=== PATIENT | female | born 1985 | race Caucasian/White ===

== ENCOUNTER → 2018-09-14 13:36 | Outpatient (CLI) | payer MEDICARE, MEDICAID, SELFPAY ==
--- NOTE | 2018-09-14 | DI.MRI.S_ITS ---
PROCEDURE: MR HIP RT WO CON INDICATIONS: RIGHT HIP PAIN, LYTIC BONE LESIONS OF RIGHT FEMUR TECHNIQUE: Noncontrast coronal T1 spin echo and STIR through the bony pelvis. Coronal and axial T2 fast spin echo with fat saturation, sagittal T1 spin echo, and oblique axial T2 fast spin echo with fat saturation through the hip. (Please note that the patient declined IV contrast.) COMPARISON: [facility], MR, LOW.EXTREM NO JOINT WO CONTRAS, 09/16/2017, 13:09. [facility], MD, BONE SCAN WHOLE BODY, 10/22/2017, 13:54. [facility], MR, MR FEMUR RT WO CON, 09/14/2018, 14:22. [facility], MR, LOW.EXTR.NO JOINT WWO CONTRAST, 02/02/2018, 12:20. [facility], MR, MR PELVIS W&WO CON, 02/10/2017, 11:46. FINDINGS: Image quality: Diagnostic. However, please note that the patient declined intravenous contrast. Bones and joints: No acute fracture or dislocation is identified involving the osseous structures of the right hip or included bony pelvis. No evidence of avascular necrosis involving the proximal femur is evident. There continues to be marrow edema identified involving the proximal femoral shaft, which is less pronounced on the current study, compared to the previous exam. There appear to be postoperative changes involving the proximal femoral shaft. Please see the dictated report of the MRI of the femur from 09/14/18 for more details. Mild to moderate degenerative changes of the right hip are identified. Left angle of the proximal right femur appears to be within normal limits at less than 55?. No significant right hip effusion is identified. No suspicious osseous lesions are evident involving the remainder of the imaged osseous structures of the pelvis. There severe degenerative changes of the bilateral sacroiliac joints with possible osseous erosions and reactive marrow edema (left greater than right). There are mild to moderate degenerative changes of the lower lumbar spine and left hip. There is a focal area of low signal intensity identified involving the superior aspect of the acetabulum/left anterior iliac bone (image 19, series 3), which has been present on previous examinations and probably represents a bone island. Labrum: The right acetabular labrum is not well evaluated without intra-articular contrast. Mild heterogeneity along the superior labrum is present. No detached labral fragments are appreciated. No large para labral cysts are identified. Tendons and ligaments: The distal right gluteus medius and gluteus minimus tendons appear to be intact. The distal iliopsoas tendon also appears to be intact. The proximal hamstrings tendons are intact. The ligamentum teres appears intact where visualized. Soft tissues: Visualized muscles demonstrate normal bulk and internal signal. Quadratus femoris muscle demonstrates no internal edema to suggest ischiofemoral impingement. The proximal sciatic neurovascular bundle appears normal adjacent to the hamstring tendons. No free pelvic fluid. Bladder wall thickness is normal. Genitourinary structures and bowel loops appear normal where visualized. IMPRESSION: 1. Mild to moderate degenerative changes of the right hip without an acute fracture. 2. 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 A superimposed stress fracture is difficult to exclude. CT of the pelvis may be helpful for better characterization, if indicated. 2. No new bone lesions are evident. Dictated by: eJrmain Vickers M.D. on 09/14/2018 at 16:18 Approved by: Jermain Vickers M.D. on 09/14/2018 at 16:26
--- NOTE | 2018-09-14 | DI.MRI.S_ITS ---
PROCEDURE: MR FEMUR RT WO CON INDICATIONS: RIGHT HIP PAIN, LYTIC BONE LESIONS OF RIGHT FEMUR TECHNIQUE: Noncontrast coronal and sagittal T1 spin echo and STIR; axial T1 spin echo and T2 fast spin echo with fat saturation through the right thigh. Please note that the patient declined intravenous contrast. COMPARISON: [facility], MR, LOW.EXTR.NO JOINT WWO CONTRAST, 02/02/2018, 12:20. [facility], CR, XR FEMUR 2+ VIEWS RIGHT, 11/14/2017, 16:49. [facility], [place], BONE SCAN WHOLE BODY, 10/22/2017, 13:54. [facility], , LOW.EXTREM NO JOINT WO CONTRAS, 09/16/2017, 13:09. [facility], , MR PELVIS W&WO CON, 02/10/2017, 11:46. FINDINGS: Image quality: Diagnostic. However, the patient did declined intravenous contrast. Bones: There appear to have been interval postoperative changes involving the proximal shaft of the right femur. Residual marrow edema is identified at the operative site, which extends from the subtrochanteric region to the mid shaft of the femur. The degree of marrow edema is significantly less pronounced. There continues to be cortical thickening and heterogeneity along the anterior aspect of the proximal femoral shaft at this location no subperiosteal fluid collections are identified. However, there is mild edema identified within the underlying vastus intermedius muscle. The degree of marrow edema and adjacent soft tissue edema is less prominent on the current study compared to the previous exam. An additional separate focus of increased signal intensity on fluid sensitive sequences and intermediate signal on the T1 images is identified along the anterior margin of the distal femur at the level of the knee, which is unchanged in size and appearance since the previous examination without surrounding edema within the adjacent marrow. This structure is well circumscribed and appears to demonstrate chemical shift artifact on the T1 images, most suggestive of an enchondroma. Soft tissues: Postoperative changes within the soft tissues of the vein proximal-lateral aspect of the thigh are identified with areas of susceptibility artifact at the area of abnormal signal involving the proximal femoral shaft. There is mild residual soft tissue edema involving the vastus intermedius muscle at the site of the cortical thickening, which is significantly less pronounced on this examination, compared to the prior study. No significant muscle atrophy is identified. The remainder of the soft tissues of the thigh are within normal limits. There are no loculated fluid collections or soft tissue masses. IMPRESSION: 1. Interval postoperative changes of the proximal right femoral shaft with interval decrease in degree of marrow edema and heterogeneity, suggestive of healing. Differential diagnostic considerations would include healing stress fracture, resolving infection, or postoperative sequelae related to tumor resection/treatment. Clinical correlation with operative findings and pathological findings are recommended. The need for follow up imaging may be determined on clinical grounds. 2. Mild vastus intermedius muscle edema at the operative site is significantly less pronounced on the current study, compared to the previous exam. 3. 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 No new bone lesions. Dictated by: Jermain Vickers M.D. on 09/14/2018 at 16:27 Approved by: Jermain Vickers M.D. on 09/14/2018 at 16:38
== END ==
PROVIDERS: PCP Family Medicine; Visit Provider Family Medicine
DX: M25.551 Pain in right hip (principal); M89.9 Disorder of bone, unspecified; M16.11 Unilateral primary osteoarthritis, right hip; M47.818 Spondylosis without myelopathy or radiculopathy, sacral and sacrococcygeal region
CPT/HCPCS: 73718; 73721

== ENCOUNTER → 2019-10-27 18:54 | Outpatient (CLI) | payer MEDICARE, OTHER, MEDICAID, SELFPAY | PROVIDERS: PCP Family Medicine; Visit Provider Physician Assistant | DX: N30.01 Acute cystitis with hematuria (principal) | CPT/HCPCS: 87077; 87086; 87186 ==

== ENCOUNTER → 2019-12-10 13:57 | Outpatient (CLI) | payer MEDICARE, MEDICAID, SELFPAY ==
--- NOTE | 2019-12-10 | DI.MRI.S_ITS ---
PROCEDURE: MR KNEE RT WO CON INDICATIONS: PAIN IN RIGHT KNEE TECHNIQUE: Noncontrast sagittal PD fast spin echo and T2 fast spin echo with fat saturation, sagittal 3-D FLASH with fat saturation; coronal T1 spin echo and PD fast spin echo with fat saturation, and axial PD fast spin echo with fat saturation through the knee. COMPARISON: [facility], MR, KNEE WITHOUT CONTRAST, 09/16/2017, 13:45. FINDINGS: Image quality: Excellent. Menisci: The attachment of the posterior horn medial meniscus. The medial and lateral menisci demonstrate otherwise normal morphology and internal signal. The meniscal root ligaments appear intact. Cruciate ligaments: The anterior and posterior cruciate ligaments appear intact. Medial structures: The medial collateral ligament appears intact. There is moderate T2 signal elevation within the semimembranosus tendon at the tibial insertion site. Visualized portions of the pes anserinus tendons appear normal. No abnormal bursal fluid. Lateral structures: The lateral collateral ligament, long and short heads of the biceps femoris tendon appear intact. The popliteus tendon appears normal; the popliteofibular ligament appears intact. The posterosuperior and anteroinferior popliteomeniscal fascicles appear intact. The arcuate and fabellofibular ligaments appear intact, on either side of the lateral inferior geniculate artery. Iliotibial band appears normal. Anterior structures: The quadriceps and patellar tendons appear intact. Patellar alignment is normal. No femoral trochlear dysplasia or ventral trochlear prominence. No edema in the infrapatellar fat pad. Bones and cartilage: No bone marrow contusions or fractures. Mild reactive marrow edema within the medial tibial plateau posteriorly at the semimembranosus insertion site. No change in 14 mm cystic focus within the distal femur. There is mild diffuse articular cartilage loss overlying the weightbearing aspects of the medial femoral condyle and medial tibial plateau. Joint space: There is physiologic knee joint fluid. No Turner's cyst. Normal appearing synovial plicae are incidentally noted. IMPRESSION: 1. Detachment of the posterior horn medial meniscus without tear. 2. No change in benign-appearing cystic focus within the distal femur. 3. Mild medial compartment cartilage loss. 4. Moderate insertional tendinitis of the semimembranosus. Dictated by: Charan Bain M.D. on 12/10/2019 at 16:17 Approved by: Charan Bain M.D. on 12/10/2019 at 16:22
== END ==
PROVIDERS: PCP Family Medicine; Visit Provider Anesthesiology Pain Medicine
DX: M25.561 Pain in right knee (principal); M76.891 Other specified enthesopathies of right lower limb, excluding foot
CPT/HCPCS: 73721

== ENCOUNTER 2019-12-16 19:45 | Emergency (ER) | payer MEDICARE, MEDICAID, SELFPAY ==
[2019-12-16 19:56] VITALS: BP 132/86; PULSE 102; RESP 18; TEMP 36.4; O2SAT 99
--- NOTE | 2019-12-16 21:12 | ED_ITS ---
HPI - Extremity Problem General Chief complaint: Extremity Problem,Nontraumatic Stated complaint: rt knee pain Time Seen by Provider: 12/16/19 21:06 Source: patient Mode of arrival: Wheelchair Limitations: no limitations History of Present Illness HPI Narrative: 34-year-old female with known right knee pain. Had an MRI performed does show meniscus injury. She stated that she was told to come to the emergency department by her production painter because they could not get her in until the end of the month. She states that she has no new symptoms and just needs pain control. She also states that her primary doctor has since left practice and she is not make contact with the new primary since then. She is here for pain control Related Data Home Medications Medication Instructions Recorded Confirmed doxepin 50 mg capsule 50 mg PO BEDTIME 11/12/19 11/12/19 Previous Rx's Medication Instructions Recorded acetaminophen-codeine 1 tab PO Q6H PRN #6 tab 12/16/19 [Tylenol-Codeine #3] Allergies Allergy/AdvReac Type Severity Reaction Status Date / Time lactose [LACTOSE] Allergy Mild Verified 11/12/19 14:11 hydrocodone Allergy Verified 11/12/19 14:11 NSAIDS (Non-Steroidal Allergy Verified 11/12/19 14:11 Anti-Inflamma Review of Systems Musculoskeletal Comments: Right knee pain Integumentary/Breasts Skin/Breast: Denies rash Neurologic Neurologic: Denies behavioral changes Psychiatric Psychiatric: Denies behavioral changes Patient History Medical History (Updated 12/16/19 @ 21:17 by Jeffery Alfaro DO) Anxiety (Chronic) Chicken pox (Resolved) Depression (Inactive) Fibromyalgia (Chronic ~2014) PTSD (post-traumatic stress disorder) (Chronic) Scoliosis (Chronic) Seizure (Chronic ~2014) TBI (traumatic brain injury) (Chronic ~2014) Surgical History (Updated 11/20/19 @ 22:48 by Oanh Prince) Anesthesia (Resolved) History of surgery (Resolved ~2017) Status post cholecystectomy (~2010) Family History (Updated 11/20/19 @ 22:50 by aOnh Prince) Father Mental health problem Mother Alzheimer's disease Grandfather History of heart disease Grandfather History of heart disease Grandmother Cancer Social History Smoking Status: Current every day smoker Smoking Status: Current every day smoker Substance Use Type: marijuana Exam Initial Vital Signs Initial Vital Signs: Vital Signs Temperature 97.6 F 12/16/19 19:56 Pulse Rate 102 H 12/16/19 19:56 Respiratory Rate 18 12/16/19 19:56 Blood Pressure 132/86 12/16/19 19:56 Pulse Oximetry 99 12/16/19 19:56 Resp Effort & Inspection: normal respiratory effort Cardio Rate: tachycardic Neuro General: alert and awake Speech: speech normal Extrem General: normal to inspection Course Orders Ordered: Discontinued Medications Tramadol HCl (Ultram) 50 mg PO NOW ONE Stop: 12/16/19 21:32 Last Admin: 12/16/19 21:35 Dose: 50 mg Documented by: BROOKS Vital Signs Vital signs: Vital Signs - 8 hr 12/16/19 19:56 Temperature 97.6 F Pulse Rate 102 H Respiratory Rate 18 Blood Pressure 132/86 Pulse Oximetry 99 MDM - Extremity (Nontraumatic) MDM Narrative Medical decision making narrative: Informed patient that unfortunately the emergency department does not treat chronic pain. She stated that this was not chronic pain in it was new pain. Again informed her that unfortunately I could only give her 24 hours of pain medication. She is under the care of pain management. She did seem upset about this. She stated that the pain management office told her to come to the emergency department. I informed her that despite that unfortunately we cannot prescribe her pain medication until her next appointment on the of this month. She was given 1 days with pain medication. Discharge Plan Departure Patient Disposition: Home Clinical Impression: Pain in right knee Qualifiers: Chronicity: unspecified Qualified Code(s): M25.561 - Pain in right knee Discharge Date/Time: 12/16/19 21:38 Instructions: DI for Meniscal Tear Activity Restrictions/Additional Instructions: Unfortunately the emergency department does not treat chronic pain. Any further pain management needs to come from either your primary provider or your production painter. Keep all of your scheduled medical appointments Prescriptions: New acetaminophen-codeine [Tylenol-Codeine #3] 300-30 mg tablet 1 tab PO Q6H PRN (Reason: pain) Qty: 6 RF: 0 No Action doxepin 50 mg capsule 50 mg PO BEDTIME RF: 0 Referrals: Tamara Santiago, [Primary Care Provider] -
--- NOTE | 2019-12-16 21:23 | PC.NURSE ---
noted pt with pain with weight bearing, ambulate with cane.
[2019-12-16] MEDS: TRAMADOL 50 MG TABLET PO (21:35)
== END 2019-12-16 21:38 | disposition home or self-care (01) ==
PROVIDERS: Emergency Provider Emergency Medicine; PCP Family Medicine
DX: M25.561 Pain in right knee (principal)
CPT/HCPCS: 99283